=== PATIENT | female | born 1970 | race Hispanic/Latino ===

== ENCOUNTER 2020-11-24 09:15 | Outpatient (CLI) | payer BC | END 2020-11-24 09:16 | disposition home or self-care (01) | LOC: CSHMRI 09:15 | PROVIDERS: ATTEND Family Medicine | DX: M54.12 Radiculopathy, cervical region (principal); M47.812 Spondylosis without myelopathy or radiculopathy, cervical region; E04.1 Nontoxic single thyroid nodule | CPT/HCPCS: 72141 ==

== ENCOUNTER 2020-11-29 12:17 | Outpatient (CLI) | payer BC | END 2020-11-29 12:18 | disposition home or self-care (01) | LOC: CSHULT 12:17 | PROVIDERS: ATTEND Family Medicine | DX: E04.1 Nontoxic single thyroid nodule (principal) | CPT/HCPCS: 76536 ==

== ENCOUNTER 2020-12-20 08:08 | Outpatient (CLI) | payer BC ==
[2020-12-20 16:32] LABS: SARS-CoV-2 PCR by NAA Not Detected (NotDetected)
== END 2020-12-20 08:09 | disposition home or self-care (01) ==
LOC: CSHLAB 08:08
PROVIDERS: ATTEND Otolaryngology Plastic Surgery within the Head & Neck
DX: Z20.822 Contact with and (suspected) exposure to COVID-19 (principal); E04.1 Nontoxic single thyroid nodule
CPT/HCPCS: 87635; U0003; U0005

== ENCOUNTER 2021-07-12 12:22 | Outpatient (CLI) | payer BC | END 2021-07-12 12:23 | disposition home or self-care (01) | LOC: CSHMRI 12:22 | PROVIDERS: ATTEND Anesthesiology Pain Medicine | DX: M48.062 Spinal stenosis, lumbar region with neurogenic claudication (principal) | CPT/HCPCS: 72148 ==

== ENCOUNTER 2022-01-13 07:27 | Outpatient (CLI) | payer BC | END 2022-01-13 07:28 | disposition home or self-care (01) | LOC: CSHULT 07:27 | PROVIDERS: ATTEND Otolaryngology Plastic Surgery within the Head & Neck | DX: E04.1 Nontoxic single thyroid nodule (principal) | CPT/HCPCS: 76536 ==

== ENCOUNTER 2025-05-26 10:59 | Emergency (ER) | payer BC ==
[~2025-05-26 10:59] MED LIST: Iopamidol 370 76% 100 ML VIAL ONE
[2025-05-26 11:46] LABS: #Basophils Less than 0.03 10x3/uL (0.0-0.2); #Eosinophils Less than 0.03 10x3/uL (0.0-0.5); #Monocytes 0.82 10x3/uL (0.0-1.1); #Neutrophils 5.52 10x3/uL (1.5-8.4); %Basophils 0.3 % (0.0-2.0); %Eosinophils 0.3 % (0.0-6.0); %Lymphocytes 5.8 % (18.0-47.0); %Monocytes 11.8 % (0.0-10.0); %Neutrophils 79.8 % (40.0-75.0); Hematocrit 42.9 % (34.9-44.5); Hemoglobin 14.8 g/dL (12.0-15.5); Mean Corpuscular Hemoglobin 27.4 pg (27.0-33.0); Mean Corpuscular Volume 79.3 fL (81.6-98.3); Platelet Count 345 10x3/uL (150-450); Red Blood Cell (RBC) Count 5.41 10x6/uL (3.90-5.03); White Blood Cell (WBC) Count 6.92 10x3/uL (3.5-10.5)
[2025-05-26] MEDS ORDERED: Ketorolac Tromethamine 30 MG (1 mL) VIAL ONE (11:54)
[2025-05-26] MEDS ORDERED: diphenhydrAMINE 50 MG/ML VIAL ONE (11:54)
[2025-05-26] MEDS ORDERED: Prochlorperazine 10 MG/2 ML VIAL ONE (11:54)
[2025-05-26 12:04] LABS: ALT (SGPT) 42 U/L (Less than 34); AST (SGOT) 56 U/L (11-34); Albumin 3.9 g/dL (3.1-4.5); Alkaline Phosphatase 97 U/L (40-110); Anion Gap 20 mmol/L (10-20); BUN (Urea Nitrogen) 37 mg/dL (9.8-20.1); Bilirubin, Total 0.5 mg/dL (0.3-1.2); Calc. Creatinine Clearance 0 mL/min (70-130); Calcium 9.1 mg/dL (7.8-10.44); Carbon Dioxide 20 mmol/L (22-29); Chloride 95 mmol/L (98-107); Globulin 4.2 g/dL (2.4-3.5); Glucose 108 mg/dL (70-105); Lipase 38 U/L (8-78); Potassium 3.2 mmol/L (3.5-5.1); Sodium 132 mmol/L (136-145)
[2025-05-26 12:11] LABS: Troponin I 0.015 ng/mL (< 0.028)
[2025-05-26] MEDS ORDERED: Famotidine/PF 20 mg/2ml Vial ONE (12:47)
[2025-05-26] MEDS ORDERED: Famotidine 20 MG TAB ONE (12:48)
[2025-05-26 14:09] LABS: Glucose, Urine (Dipstick) Normal (Negative); Leukocyte Negative (Negative); Protein, Urine (Dipstick) 30 mg/dl (Neg-Trace); Specific Gravity, Urine 1.005 (1.005-1.030)
[2025-05-26 14:28] LABS: Bacteria/HPF 2+ HPF (None Seen); CAUTI Indications for Culture Pelvic or flank pain; RBC/HPF 0-3 HPF (0-3); Urine Culture Reflex No No; WBC/HPF 0-3 HPF (0-3)
== END 2025-05-26 14:25 | disposition home or self-care (01) ==
LOC: CSHERS 10:59
DX: K52.9 Noninfective gastroenteritis and colitis, unspecified (principal); E86.0 Dehydration; I10 Essential (primary) hypertension
CPT/HCPCS: 36415; 71275; 74176; 80053; 81001; 83605; 83690; 84443; 84484; 85025; 93005; 96361; 96374; 96375; J0780; J1200; J1885; Q9967